=== PATIENT | male | born 1990 | race Caucasian/White ===

== ENCOUNTER 2020-08-31 15:32 | Outpatient (CLI) | payer OTHER, SELFPAY ==
[2020-08-31 15:49] LABS: Add Urine Microscopic? NO; Appearance Urine Clear (Clear); Bilirubin Urine Negative (Negative); Blood Urine Negative (Negative); Color Urine Yellow (Yellow); Glucose Urine UA Negative (Negative); Ketones Urine Negative (Negative); Leukocyte Esterase Ur Negative LEU/UL (Negative); Nitrate Urine Negative (Negative); Protein Urine Negative (Negative); Urobilinogen Urine 0.2 mg/dL (0.2-1.0); pH Urine 6.5 (5.0-8.0)
[2020-08-31 17:15] LABS: Alanine Aminotransferase 68 U/L (16-63); Alkaline Phosphatase 41 U/L (46-116); Anion Gap 8 mmol/L (8-16); Aspartate Amino Transferase 25 U/L (15-37); Bilirubin,Total 0.5 mg/dL (0.00-1.00); Blood Urea Nitrogen 12 mg/dL (7-18); Calcium 9.2 mg/dL (8.5-10.1); Carbon Dioxide 31 mmol/L (21-32); Chloride 102 mmol/L (98-108); Cholesterol 151 mg/dL (0-200); Estimated Glomerular Filt Rate > 60; Glucose 101 mg/dL (70-99); HDL Direct 36 mg/dL (40-60); LDL Cholesterol Calculated 68 mg/dL (<130); Osmolality Calculated 291 mOsm/kg (285-295); Prostate Specific Antigen 0.8 ng/mL (< OR = 4.0); Sodium 141 mmol/L (136-145); Total Protein 7.6 g/dL (6.4-8.2); Triglycerides 233 mg/dL (0-150)
[2020-09-03 17:27] LABS: Testosterone Free 42.2 pg/mL (35.0-155.0); Testosterone Total 256 ng/dL (250-1100)
== END 2020-08-31 15:33 | disposition home or self-care (01) ==
LOC: CHSLAB 15:37
PROVIDERS: PCP Nurse Practitioner Family; Visit Provider Nurse Practitioner Family
DX: Z00.00 Encounter for general adult medical examination without abnormal findings (principal); N52.9 Male erectile dysfunction, unspecified
CPT/HCPCS: 36415; 80053; 80061; 81003; 84153; 84402; 84403